=== PATIENT | female | born 1990 | race Caucasian/White ===

== ENCOUNTER → 2021-01-06 | Outpatient (CLI) | payer BC, OTHER ==
[~2021-01-06] MED LIST: ACET-1600 PO; ACET-458 PO; BACL20TA PO; DIAZ2TAB3 PO; DIAZ5TAB4 PO; FAMO-79 PO; MULT-449 PO
[2021-01-06 14:58] LABS: BASOPHILS % (AUTO) 1 % (0-1); EOSINOPHILS % (AUTO) 1 % (1-7); LYMPHOCYTES % (AUTO) 11 % (22-44); MEAN CORPUSCULAR HEMOGLOBIN 23.4 pg (27.0-34.8); MEAN CORPUSCULAR HGB CONC 31.7 g/dL (32.4-35.8); MEAN PLATELET VOLUME 7.5 fL (7.4-10.4); MONOCYTES % (AUTO) 5 % (2-9); NEUTROPHILS % (AUTO) 82 % (42-75); PLATELET COUNT 682 x10^3/uL (130-400); RED BLOOD COUNT 4.66 x10^6/uL (3.82-5.3); RED CELL DISTRIBUTION WIDTH 20.3 % (9.6-15.2)
[2021-01-06 15:10] LABS: INTERNATIONAL NORMALIZED RATIO 1.07 (0.93-1.1); PROTHROMBIN TIME 11.4 Seconds (9.6-11.5)
[2021-01-06 15:19] LABS: ANION GAP 9 mmol/L (5-15); CALCIUM 9.2 mg/dL (8.5-10.1); CHLORIDE 112 mmol/L (98-107); CREATININE 0.57 mg/dL (0.55-1.02)
[2021-01-06 15:25] LABS: <PLATELET ESTIMATE> INCREASED; <PLT MORPHOLOGY> NORMAL PLT MORPH; HYPOCHROMIA 1+
[2021-01-06 15:26] LABS: ANISOCYTOSIS 1+; MICROCYTOSIS 1+
== END | disposition home or self-care (01) ==
LOC: STAR 13:45
PROVIDERS: ATTEND Student in an Organized Health Care Education/Training Program
DX: Z01.812 Encounter for preprocedural laboratory examination (principal); Z20.822 Contact with and (suspected) exposure to COVID-19; N20.0 Calculus of kidney
CPT/HCPCS: 36415; 80048; 85025; 85610; 85730; 87635

== ENCOUNTER 2021-01-10 11:58 | Day surgery (SDC) | payer BC, OTHER ==
[~2021-01-10] VITALS: Ht 147.3 cm; Wt 26.2 kg
[2021-01-10 12:48] VITALS: BP 143/67
[2021-01-10] MEDS ORDERED: CHLORHEXIDINE 15 ML UDC PO ONE (13:00)
[2021-01-10] MEDS ORDERED: LACTATED RINGERS 1,000 ML IV SCH (13:00)
[2021-01-10 13:50] LABS: HCG UR SG 1.013 (1.003-1.030)
[2021-01-10 13:53] LABS: MICROSCOPIC INDICATED
[2021-01-10] MEDS ORDERED: OMNIPAQUE 350 MG/ML, 50 ML BOTTLE ONE (14:08)
[2021-01-10] MEDS ORDERED: MIDAZOLAM 1 MG/ML, 2ML ONE (14:18)
[2021-01-10] MEDS ORDERED: FENTANYL PF 100 MCG/2ML ONE ×2 (14:18→16:46)
[2021-01-10] MEDS ORDERED: PROMETHAZINE 25 MG/ML, 1ML IV PRN (16:00)
[2021-01-10] MEDS ORDERED: ACETAMINOPHEN 650 MG/20.3 ML UDC PO ONE (16:00)
[2021-01-10] MEDS ORDERED: FENTANYL PF 100 MCG/2ML IV PRN (16:00)
[2021-01-10] MEDS ORDERED: DIPHENHYDRAMINE 50 MG/ML, 1ML IVPush PRN (16:00)
[2021-01-10] MEDS ORDERED: PROPOFOL 10 MG/ML, 20ML ONE (16:20)
[2021-01-10] MEDS ORDERED: KETOROLAC 30 MG/1 ML ONE ×2 (16:20)
[2021-01-10] MEDS ORDERED: HYDROcodone/APAP 7.5-325MG/15ML UDC PO PRN (16:30)
[2021-01-10] MEDS ORDERED: LABETALOL 5MG/ML, 20ML ONE (16:45)
[2021-01-10] MEDS ORDERED: HYDROcodone/APAP 7.5-325MG/15ML UDC ONE (16:51)
== END 2021-01-10 18:15 | disposition home or self-care (01) ==
LOC: OUT 11:58
PROVIDERS: ATTEND Student in an Organized Health Care Education/Training Program
DX: N13.2 Hydronephrosis with renal and ureteral calculous obstruction (principal); N26.1 Atrophy of kidney (terminal); K21.9 Gastro-esophageal reflux disease without esophagitis; F41.9 Anxiety disorder, unspecified; G80.8 Other cerebral palsy; Z79.899 Other long term (current) drug therapy; Z88.5 Allergy status to narcotic agent; Z98.890 Other specified postprocedural states
CPT/HCPCS: 52356; 74018; 74485; 81001; 81025; 82360; 87077; 87086; 87106; 87186; 88300; C1769; C2617; J1885; J2250; J2704; J3010; 74425; 76000; Q9967